=== PATIENT | female | born 1955 | race Caucasian/White ===

== ENCOUNTER 2016-08-11 05:23 | Day surgery (SDC) | payer MEDICARE, OTHER ==
[2016-08-09 12:18] LABS: ALANINE AMINOTRANSFERASE 30 U/L (9-52); ALBUMIN 3.6 g/dL (3.5-5.0); ALKALINE PHOSPHATASE 93 U/L (38-126); ANION GAP 11 (5-19); ASPARTATE AMINO TRANSFERASE 32 U/L (14-36); BILIRUBIN,TOTAL 0.8 mg/dL (0.2-1.3); BLOOD UREA NITROGEN 12 mg/dL (7-20); CALCIUM 8.9 mg/dL (8.4-10.2); CARBON DIOXIDE 25 mmol/L (22-30); CHLORIDE 106 mmol/L (98-107); CREATININE RESULT 1.11 mg/dL (0.52-1.25); GLUCOSE 111 mg/dL (75-110); POTASSIUM 3.8 mmol/L (3.6-5.0); SODIUM 141.5 mmol/L (137-145); TOTAL PROTEIN 6.3 g/dL (6.3-8.2)
--- NOTE | 2016-08-09 18:20 | EKG REPORT ---
SEVERITY:- BORDERLINE ECG - SINUS RHYTHM NONSPECIFIC ANTERIOR T INVERSIONS. : Confirmed by: Cl Del Angel MD 09-Aug-2016 18:19:44
[~2016-08-11 05:23] MED LIST: LACTATED RINGERS 1000 ML IV PRN; LIDOCAINE 0.5% INJ-PF (5 MG/ML) 50 ML SDV SUBCUT PRN
[2016-08-11] MEDS ORDERED: MIDAZOLAM 2 MG/2 ML INJ ONE (06:48)
[2016-08-11] MEDS ORDERED: PROPOFOL INJ 200 MG/20 ML VIAL IV ONE ×2 (06:48→07:10)
[2016-08-11] MEDS ORDERED: ONDANSETRON HCL INJ/PF 4 MG/2 ML SDV ONE (06:48)
[2016-08-11] MEDS ORDERED: FENTANYL CITRATE INJ/PF 100 MCG/2 ML AMPUL ONE (06:48)
[2016-08-11] MEDS ORDERED: ACETAMINOPHEN 0 ML IV ONE (06:48)
[2016-08-11] MEDS ORDERED: LIDOCAINE 1%/EPINEPHRINE INJ 20 ML VIAL ONE (06:51)
[2016-08-11 07:12] LABS: HEMATOCRIT 35.4 % (36.0-47.0); HEMOGLOBIN 12.2 g/dL (12.0-15.5); HGB HCT DIFFERENCE 1.2; MEAN CORPUSCULAR HEMOGLOBIN 32.8 pg (27.0-33.4); MEAN CORPUSCULAR HGB CONC 34.4 g/dL (32.0-36.0); MEAN CORPUSCULAR VOLUME 95 fl (80-97); RED BLOOD COUNT 3.72 10^6/uL (3.72-5.28); RED CELL DISTRIBUTION WIDTH 16.2 % (11.5-14.0)
[2016-08-11 07:50] LABS: WHITE BLOOD COUNT 1.6 10^3/uL (4.0-10.5)
[2016-08-11] MEDS ORDERED: DIAZEPAM 5 MG TABLET ONE (07:51)
[2016-08-11] MEDS ORDERED: DIPHENHYDRAMINE HCL 50 MG/ML VIAL IV PRN (08:26)
[2016-08-11] MEDS ORDERED: PROMETHAZINE HCL INJ 25 MG/1 ML VIAL IV PRN ×2 (08:26)
[2016-08-11] MEDS ORDERED: MORPHINE SULFATE 10 MG/ML INJ IV PRN (08:26)
[2016-08-11] MEDS ORDERED: MEPERIDINE HCL/PF INJ 25 MG/1 ML DISP.SYRIN IV PRN (08:26)
[2016-08-11] MEDS ORDERED: FENTANYL CITRATE INJ/PF 100 MCG/2 ML AMPUL IV PRN ×3 (08:26)
[2016-08-11] MEDS ORDERED: HYDROMORPHONE HCL INJ/PF 2 MG/ML AMPULE ONE ×2 (08:50→10:11)
[2016-08-11] MEDS ORDERED: RINGERS SOLUTION,LACTATED 1,000 ML IV PRN (09:47)
[2016-08-11] MEDS ORDERED: OXYCODONE-ACETAMINOPHEN 5-325 MG TABLET PO PRN ×2 (09:48)
[2016-08-11] MEDS ORDERED: IBUPROFEN 800 MG TABLET PO PRN (09:48)
[2016-08-11 10:43] LABS: PATH REVIEW PATHOLOGIST REVIEWED
[2016-08-11] MEDS ORDERED: CEFAZOLIN INJ 1 GM VIAL ONE (10:58)
[2016-08-11] MEDS ORDERED: CEFAZOLIN SODIUM 1 GM in DEXTROSE 5%-WATER 50 ML IV PRN (10:59)
[2016-08-11 11:35] VITALS: BP 136/85
--- NOTE | 2016-08-18 09:24 | Operative Report ---
Operative Report DATE OF SURGERY: 08/11/16 OPERATION: EUA, Paracervical Block, Hysteroscopy, D&C, L/S with cautery of uterus at perforation. ANESTHESIA: GA TISSUE REMOVED OR ALTERED: endometrial currettings COMPLICATIONS: uterine perforation PROCEDURE: Preoperative Diagnosis: [PMB with possible polyp noted on Endometrial biopsy] Postoperative Diagnosis: DIAMANTE Procedure: EUA, Paracervical Block,Hysteroscopy, Dilation and Curettage, Operative L/S with cautery of perforation site at fundus Anesthesia: [Cristo Zhang MD, Db Whatley CRNA] Anesthesia: GETT EBL: less than 20ml IVF: [900ml] UOP: 100ml Specimens: [endometrial currettings] Complications: None Findings:[small anteverted uterus with moderate descent, on hysteroscopy noted possible ashermans extending down the length of the uterine cavity in the central portion of the cavity or a uterine septum which extended to the endocervical os, uterine perforation noted at the lateral fundus near each fallopian tube. no other injuries noted on survey of the patient's abdomen. Cobblestone appearance of the liver noted.. ] Indications: [61yo with postmenopausal bleeding and endometrial biopsy in the office revealed possible endometrial polyp. The risks, benefits, alternatives reviewed with the patient and she desires to proceed with planned procedure.] Procedure: The patient was taken to the Operating Room where general anesthesia was obtained without difficulty. She was prepped and draped in the normal sterile fashion in the dorsal lithotomy position. Exam under anesthesia was performed and noted above. A speculum was placed in the vagina. The anterior cervix was grasped with a single-tooth tenaculum and the uterus sounded to 8 cm after paracervical block was performed with 8 mL of 1% lidocaine with epinephrine. Sequential dilators were then used to dilate the cervix to accommodate the hysteroscope but the dilators extended past the initial sound of the uterus. The hysteroscope was then gently advanced into the uterine cavity in the usual fashion and septum or asherman's noted as described above and possible uterine perforation noted. The hysteroscopy was removed and gently currettage low in the uterus and endocervis was performed. The currett was removed. All instruments were removed from the patient's cervix and vagina. Silver nitrate was applied to the tenaculum site for hemostasis. Attention was then turned to the patient's abdomen (after the patient was repreped and draped for an abdominal procedure) and an infraumbilical skin incision was made. The Optiview trocar and laparoscope were then gently advanced under direct visualization. The abdomon was then insufflated with 4L of carbon dioxide gas. Survey of the patients abdomen and pelvis revealed two uterine perforations at the fundus near the fallopian tubes (one on each side). There were no other injuries on survey of the abdomen. A second 5mm trocar was placed in the left lower quadrant approximately 4cm superior and 2 cm medial to the anterior superior iliac spine. The monopolar endoshears were then advanced and the uterine perforation sites were cauterized. The abdomen was then cleared of the free fluid and hemoperitoneum. All sites were noted to be hemostatic. All instruments were removed from the patients abdomen. All trocars were remov after the insufflation was evacuated. All trocar sites were closed with 30 monocryl and overlying dermabond. Sponge lap needle and instrument counts are correct x 2. 2 grams of Ancef were ordered postoperatively for antibiotic coverage due to patient's low white blood cell count and the uterine perforation noted. The patient tolerated the procedure well and was taken to the recovery area awake and in stable condition.
== END 2016-08-11 11:30 | disposition home or self-care (01) ==
LOC: OROUT 05:23
PROVIDERS: ATTEND Student in an Organized Health Care Education/Training Program
PROC: 0UQ Female Reproductive System, Repair (ICD-10-PCS; 2016-08-11)
PROC: 0UDB8ZX Extraction of Endometrium, Via Natural or Artificial Opening Endoscopic, Diagnostic (ICD-10-PCS; principal; 2016-08-11 07:30)
DX: N95.0 Postmenopausal bleeding (principal); N84.0 Polyp of corpus uteri; S37.69XA Other injury of uterus, initial encounter; N99.71 Accidental puncture and laceration of a genitourinary system organ or structure during a genitourinary system procedure; Y92.530 Ambulatory surgery center as the place of occurrence of the external cause; F17.210 Nicotine dependence, cigarettes, uncomplicated; E07.9 Disorder of thyroid, unspecified; Z79.899 Other long term (current) drug therapy
CPT/HCPCS: 93005; 36415 ×2; 85027; 80053; 88305 ×2; 93010; 58558; 58999; J2250; J0690; A9270; J3010; J3490; J1170; J2405; J2704; 840; J0131

== ENCOUNTER 2016-08-12 10:21 | Emergency (ER) | payer MEDICARE, OTHER ==
--- NOTE | 2016-08-12 10:34 | ER Document Report ---
ED Medical Screen (RME) - General Stated Complaint: SIDE PAIN Time seen by provider: 10:31 Mode of Arrival: Wheelchair Information source: Patient Notes: 61-year-old female that had a D&C yesterday by Dr. Gold is complaining of generalized body pain abdominal, back, arms. During the procedure her uterus was punctured with the probe. They then did a laparoscopic and cauterized the bleeder. They did not find any bowel or bladder punctured that she is aware of. No fever. No vaginal bleeding. No hematuria. TRAVEL OUTSIDE OF THE [place] IN LAST 30 DAYS: No - Related Data Allergies/Adverse Reactions: No Known Allergies Allergy (Verified 08/12/16 10:31) Past Medical History - Past Medical History Cardiac Medical History: Denies: Hx Coronary Artery Disease, Hx Heart Attack, Hx Hypertension Pulmonary Medical History: Denies: Hx Asthma, Hx Bronchitis, Hx COPD, Hx Pneumonia Neurological Medical History: Denies: Hx Cerebrovascular Accident, Hx Seizures GI Medical History: Reports: Hx Hepatitis - Hep C Musculoskeltal Medical History: Reports Hx Arthritis Psychiatric Medical History: Reports: Hx Bipolar Disorder, Hx Depression Infectious Medical History: Reports: Hx Hepatitis - Hep C Past Surgical History: Reports: Hx Section - Immunizations Hx Diphtheria, Pertussis, Tetanus Vaccination: No
[2016-08-12 11:20] LABS: ABSOLUTE LYMPHOCYTES (AUTO) 0.5 10^3/uL (0.5-4.7); ABSOLUTE MONOCYTES (AUTO) 0.1 10^3/uL (0.1-1.4); BASOPHILS % (AUTO) 0.3 % (0-2); HEMATOCRIT 38.9 % (36.0-47.0); HEMOGLOBIN 12.9 g/dL (12.0-15.5); HGB HCT DIFFERENCE -0.2; MEAN CORPUSCULAR HEMOGLOBIN 32.1 pg (27.0-33.4); MEAN CORPUSCULAR HGB CONC 33.3 g/dL (32.0-36.0); MEAN CORPUSCULAR VOLUME 96 fl (80-97); MONOCYTES % (AUTO) 5.4 % (3-13); RED BLOOD COUNT 4.04 10^6/uL (3.72-5.28); RED CELL DISTRIBUTION WIDTH 16.1 % (11.5-14.0); SEGMENTED NEUTROPHILS % (AUTO) 75.3 % (42-78); WHITE BLOOD COUNT 2.6 10^3/uL (4.0-10.5)
[2016-08-12 11:29] LABS: APPEARANCE,URINE SLIGHTLY-CLOUDY; BILIRUBIN,URINE NEGATIVE (NEGATIVE); GLUCOSE, URINE NEGATIVE (NEGATIVE); KETONES,URINE NEGATIVE (NEGATIVE); LEUKOCYTE ESTERASE,URINE LARGE (NEGATIVE); NITRITE,URINE NEGATIVE (NEGATIVE); PROTEIN,URINE NEGATIVE (NEGATIVE); URINE SPECIFIC GRAVITY 1.012; UROBILINOGEN,URINE NEGATIVE mg/dL (<2.0)
[2016-08-12 11:39] LABS: ALANINE AMINOTRANSFERASE 21 U/L (9-52); ALBUMIN 3.9 g/dL (3.5-5.0); ALKALINE PHOSPHATASE 98 U/L (38-126); ANION GAP 11 (5-19); ASPARTATE AMINO TRANSFERASE 55 U/L (14-36); BILIRUBIN,TOTAL 1.4 mg/dL (0.2-1.3); BLOOD UREA NITROGEN 17 mg/dL (7-20); CALCIUM 9.4 mg/dL (8.4-10.2); CARBON DIOXIDE 24 mmol/L (22-30); CHLORIDE 106 mmol/L (98-107); CREATININE RESULT 1.04 mg/dL (0.52-1.25); GLUCOSE 146 mg/dL (75-110); POTASSIUM 3.9 mmol/L (3.6-5.0); SODIUM 141.3 mmol/L (137-145); TOTAL PROTEIN 7.1 g/dL (6.3-8.2)
[2016-08-12] MEDS ORDERED: HYDROMORPHONE HCL INJ/PF 2 MG/ML AMPULE IV ONE ×2 (11:49→13:31)
[2016-08-12] MEDS ORDERED: NORMAL SALINE 1000 ML 1,000 ML IV ONE (11:49)
--- NOTE | 2016-08-12 11:49 | ER Document Report ---
ED General Pain - General Chief Complaint: Pain All Over Stated Complaint: SIDE PAIN Time seen by provider: 11:30 Mode of Arrival: Wheelchair Notes: Patient is a 61-year-old female presents emergency department with complaints of generalized pain. Patient had a D&C yesterday which was complicated by uterine perforation that was repaired. She was discharged home and told that she would likely have increased pain over the next 1-2 days. She states that the vaginal bleeding has almost subsided. She however complains of pain that is generalized. She is on chronic pain medication and has been weaning herself off of this over this week. She was not given any additional pain medication as she is on pain management. She states that she was in pain yesterday when she left the hospital but had received a dose of Dilaudid. She did not take any pain medication until 2 PM yesterday and states that her pain medication is not helping. She's had decreased appetite as well. She denies any nausea or vomiting. She denies fever. She does have some bruising to her abdominal wall around one of her laparoscopy sites. Patient's family states that after the D& C was performed, the surgeon to perform a laparoscopy to repair the uterine perforation and to check for any other injuries. Patient states that she does have some abdominal pain but in general hurts all over. TRAVEL OUTSIDE OF THE [place] IN LAST 30 DAYS: No - Related Data Allergies/Adverse Reactions: No Known Allergies Allergy (Verified 08/12/16 10:31) Past Medical History - General Information source: Patient - Social History Smoking Status: Never Smoker Chew tobacco use (# tins/day): No Frequency of alcohol use: None Drug Abuse: None Family History: Reviewed & Not Pertinent Patient has suicidal ideation: No Patient has homicidal ideation: No - Past Medical History Cardiac Medical History: Denies: Hx Coronary Artery Disease, Hx Heart Attack, Hx Hypertension Pulmonary Medical History: Denies: Hx Asthma, Hx Bronchitis, Hx COPD, Hx Pneumonia Neurological Medical History: Denies: Hx Cerebrovascular Accident, Hx Seizures Renal/ Medical History: Denies: Hx Peritoneal Dialysis GI Medical History: Reports: Hx Hepatitis - Hep C Musculoskeltal Medical History: Reports Hx Arthritis Psychiatric Medical History: Reports: Hx Bipolar Disorder, Hx Depression Infectious Medical History: Reports: Hx Hepatitis - Hep C Past Surgical History: Reports: Hx Section - Immunizations Hx Diphtheria, Pertussis, Tetanus Vaccination: No Review of Systems - Review of Systems Constitutional: Weakness - generalized. denies: Fever, Malaise EENT: denies: Nose congestion Cardiovascular: denies: Chest pain Respiratory: denies: Short of breath Gastrointestinal: Abdominal pain. denies: Diarrhea, Vomiting Musculoskeletal: Muscle pain Neurological/Psychological: denies: Headaches Physical Exam - Vital signs Vitals: Temp Pulse Resp BP Pulse Ox 97.3 F 71 13 125/64 98 08/12/16 14:12 08/12/16 14:12 08/12/16 14:12 08/12/16 14:12 08/12/16 14:12 - Notes Notes: PHYSICAL EXAMINATION: GENERAL: Well-appearing, well-nourished and in no acute distress. HEAD: Atraumatic, normocephalic. EYES: sclera anicteric, conjunctiva are normal. ENT: Moist mucous membranes. NECK: supple, no meningismus BACK: No CVA tenderness to palpation. No midline tenderness to palpation. No step-offs or deformities. LUNGS: Breath sounds clear to auscultation bilaterally and equal. No wheezes rales or rhonchi. HEART: Regular rate and rhythm without murmurs ABDOMEN: Soft, generalized mild tenderness to palpation, incisions in left lower quadrant and umbilicus are clean, dry, and intact, ecchymosis noted around left lower quadrant incision, normoactive bowel sounds. Mild distention , voluntary guarding noted diffusely, no rebound EXTREMITIES: Normal range of motion, no pitting or edema. No cyanosis. No calf tenderness to palpation. 2+ pulses. NEUROLOGICAL: Cranial nerves grossly intact. Normal speech, moves all extremities equally, generalized weakness noted in all extremities PSYCH: Normal mood, normal affect. SKIN: Warm, Dry, no rashes or lesions noted. Course - Re-evaluation Re-evalutation: 08/12/16 Patient presents for generalized pain after D&C yesterday. Labs are about at baseline. Patient was given Dilaudid and IV fluids. On reevaluation, patient is sitting up in a wheelchair. She states that she continues to have significant pain. She does however appear more alert and interactive. Family member at bedside states that he is able to get her up and around the house. Patient has mild abdominal pain which is expected postprocedure. Hemoglobin is stable and have low suspicion for postoperative hemorrhage. Do not suspect postoperative infection at this time. Patient was counseled to increase her home pain medication to 1-2 tabs every 4-6 hours as needed and to call her bait painter on Sunday. Family member did note that patient recently started weaning herself off of her medications. She stopped one of her pain medications and decreased her oxycodone 2 days prior to surgery. Patient is nontoxic and stable for discharge. She was given return precautions. Patient and family verbalized understanding of plan and are in agreement with discharge. - Vital Signs Vital signs: Temp Pulse Resp BP Pulse Ox 97.3 F 71 13 125/64 98 08/12/16 14:12 08/12/16 14:12 08/12/16 14:12 08/12/16 14:12 08/12/16 14:12 - Laboratory Result Diagrams: 08/12/16 11:00 08/12/16 11:00 Laboratory results interpreted by me: 08/12/16 08/12/16 08/12/16 10:50 11:00 11:00 WBC 2.6 L RDW 16.1 H Plt Count 55 L Est GFR (Non-Af Amer) 54 L Glucose 146 H Total Bilirubin 1.4 H AST 55 H Urine Blood MODERATE H Ur Leukocyte Esterase LARGE H Discharge - Discharge Clinical Impression: Post-operative pain Condition: Stable Disposition: HOME, SELF-CARE Additional Instructions: ABDOMINAL PAIN: There are many causes of abdominal pain. Pain can mean a serious problem requiring surgery (such as appendicitis). It can also be an innocent problem that goes away on its own (such as a viral infection). Often, time must pass to determine the cause of pain. The physician does not feel that hospitalization is necessary, at present. Things may change within the next 24 hours. Call the doctor or come back for re- examination if any problems occur, such as: (1) Pain that becomes more severe, steady, or becomes concentrated in one specific area. Also, pain that is more severe with movement or coughing. (2) Vomiting that persists or becomes more frequent. (3) Blood in the vomitus, urine, or bowel movements. Blood in the stool may have a tarry or black appearance. (4) Shaking chills or fever greater than 100 degrees F. (5) The abdomen becomes more distended or swollen. (6) Bowel movements cease. (7) Failure to improve as expected. PAIN MEDICATION INJECTION: You have received an injection of a pain medication. You should experience significant pain relief within 45 minutes. This drug is a narcotic - - it will impair your judgement, slow your reaction time and make you sleepy ( as well as relieve your pain). Narcotics also can cause nausea. You should not drive, work with machinery, or perform any task requiring mental alertness until all effects of the medication are gone -- six to eight hours. Do not take any alcohol, or sedatives, and do not take any other medication without checking with your physician. ORAL NARCOTIC MEDICATION: You have been given a prescription for pain control. This medication is a narcotic. It's best taken with food, as nausea can result if taken on an empty stomach. Don't operate machinery or drive within six hours of taking this medication. Do not combine this medicine with alcohol, or with any medication which can cause sedation (such as cold tablets or sleeping pills) unless you get permission from the physician. Narcotics tend to cause constipation. If possible, drink plenty of fluids and eat a diet high in fiber and fruits. Please be aware that prescription narcotics also have the potential for abuse. People become addicted to these medications because of the general sense of wellbeing that they induce. This feeling along with a significant reduction in tension, anxiety, and aggression provides a stimulating seductive quality to these drugs. Once your pain is under control, we encourage you to discard your unused narcotics. FOLLOW-UP CARE: If you have been referred to a physician for follow-up care, call the physician s office for an appointment as you were instructed or within the next two days. If you experience worsening or a significant change in your symptoms, notify the physician immediately or return to the Emergency Department at any time for re-evaluation. As discussed, increase your pain medication to 1-2 tabs every 4-6 hours as needed for pain control. Call your pain management physician Sunday morning to discuss pain control and schedule close follow up. Follow up with your surgeon as scheduled. Referrals: NONI ANGELP [Primary Care Provider] - Follow up in 3-5 days
[2016-08-12] MEDS ORDERED: OXYCODONE HCL IR 5 MG TABLET PO ONE (13:32)
[2016-08-12 14:14] VITALS: BP 125/64
== END 2016-08-12 14:34 | disposition home or self-care (01) ==
LOC: ER 10:21
DX: G89.18 Other acute postprocedural pain (principal); M79.1 Myalgia; R53.1 Weakness; Z86.19 Personal history of other infectious and parasitic diseases
CPT/HCPCS: 96376; 99283; 96361; 96374; 36415; 87086; 85025; 80053; 81001; J1170; J7030; A9270

== ENCOUNTER → 2016-10-30 | Outpatient (CLI) | payer MEDICARE, OTHER ==
[2016-10-30 12:40] LABS: MEAN CORPUSCULAR HEMOGLOBIN 32.1 pg (27.0-33.4); MEAN CORPUSCULAR HGB CONC 34.4 g/dL (32.0-36.0); MEAN CORPUSCULAR VOLUME 93 fl (80-97); RED BLOOD COUNT 3.75 10^6/uL (3.72-5.28); RED CELL DISTRIBUTION WIDTH 13.1 % (11.5-14.0)
[2016-10-30 12:58] LABS: ALANINE AMINOTRANSFERASE 24 U/L (9-52); ALBUMIN 3.7 g/dL (3.5-5.0); ALKALINE PHOSPHATASE 72 U/L (38-126); ANION GAP 12 (5-19); ASPARTATE AMINO TRANSFERASE 23 U/L (14-36); BILIRUBIN,DIRECT 0.3 mg/dL (0.0-0.4); BILIRUBIN,TOTAL 0.9 mg/dL (0.2-1.3); BLOOD UREA NITROGEN 19 mg/dL (7-20); CALCIUM 9.2 mg/dL (8.4-10.2); CARBON DIOXIDE 22 mmol/L (22-30); CHLORIDE 111 mmol/L (98-107); CHOLESTEROL 129.24 mg/dL (0-200); CREATININE RESULT 0.77 mg/dL (0.52-1.25); Direct HDL 40 mg/dL (>40); GLUCOSE 88 mg/dL (75-110); POTASSIUM 3.8 mmol/L (3.6-5.0); SODIUM 144.6 mmol/L (137-145); TRIGLYCERIDES 84 mg/dL (<150)
[2016-10-30 13:09] LABS: DIRECT LDL 57 mg/dL (<100)
[2016-10-30 13:10] LABS: BASOPHILS % (MANUAL) 0 % (0-2); EOSINOPHILS % (MANUAL) 2 % (0-6); LYMPHOCYTES % (MANUAL) 42 % (13-45); TOTAL CELLS COUNTED 50
[2016-10-30 13:18] LABS: RBC MORPHOLOGY COMMENT NORMO-CYTIC/CHROMIC
[2016-10-30 14:41] LABS: WHITE BLOOD COUNT 1.4 10^3/uL (4.0-10.5)
== END ==
LOC: OD 11:12
PROVIDERS: ATTEND Psychiatry & Neurology Psychiatry
DX: E66.9 Obesity, unspecified (principal); F31.30 Bipolar disorder, current episode depressed, mild or moderate severity, unspecified
CPT/HCPCS: 36415; 80053; 80061; 84443; 85025

== ENCOUNTER → 2017-01-31 | Outpatient (CLI) | payer MEDICARE, OTHER ==
--- NOTE | 2017-01-31 09:54 | WOMENS IMAGING REPORT ---
EXAM DESCRIPTION: BILAT SCREENING MAMMO W/CAD COMPLETED DATE/TIME: 01/31/2017 8:14 am REASON FOR STUDY: Z12.31, ROUTINE SCREENING MAMMO Z12.31 ENCNTR SCREEN MAMMOGRAM FOR MALIGNANT NEOP LASM OF SHABBIR COMPARISON: Multiple since 2008 TECHNIQUE: Standard craniocaudal and mediolateral oblique views of each breast recorded using nodilaa l acquisition. LIMITATIONS: None. FINDINGS: Findings present which are benign by mammographic criteria. No suspicious masses, calcifi cations or architectural distortion. Pertinent benign findings: Benign bilateral breast parenchymal calcification Read with the assistance of CAD. .[facility] - R2 Cenova Version 1.3 .[facility] Imaging - R2 Cenova Version 1.3 .[facility] Imaging - R2 Cenova Version 2.4 .[facility] [place] R2 Cenova Version 2.4 .[facility] - R2 Edi Analyst Version 9.2 Benign mammographic findings may include one or more of the following: Smooth masses, popcorn/rim/co arse calcifications, asymmetries, post-procedure changes, and lesions with long-standing stability. IMPRESSION: BENIGN MAMMOGRAPHIC FINDINGS. BIRADS 2 BREAST DENSITY: a. The breasts are almost entirely fatty. BIRAD: 2 BENIGN FINDING(S) RECOMMENDATION: ROUTINE SCREENING COMMENT: The patient has been notified of the results by letter per SA requirements. Additional no tification policies are in place for contacting patient with suspicious or incomplete findings. Quality ID #225: The [employer] recommends an annual screening mammogram for women aged 40 years or over. This facility utilizes a reminder system to ensure that all patients receive reminder letters, and/or direct phone calls for appointments. This includes reminders for routine scr eening mammograms, diagnostic mammograms, or other Breast Imaging Interventions when appropriate. Th is patient will be placed in the appropriate reminder system. The [employer] (ACR) has developed recommendations for screening MRI of the breast s in certain patient populations, to be used in conjunction with mammography. Breast MRI surveillanc e may be appropriate for women with more than 20% lifetime risk of developing breast cancer as deter mined by genetic testing, significant family history of the disease, or history of mantle radiation f or Hodgkins Disease. ACR Practice Guidelines 2008. TECHNICAL DOCUMENTATION: FINDING NUMBER: (1) ASSESSMENT: (1) JOB ID: [id number] [employer]- All Rights Reserved
== END ==
LOC: WI 09:43
PROVIDERS: ATTEND Physician Assistant
DX: Z12.31 Encounter for screening mammogram for malignant neoplasm of breast (principal)
CPT/HCPCS: 77067; G0202

== ENCOUNTER → 2018-02-19 | Outpatient (CLI) | payer MEDICARE, OTHER ==
--- NOTE | 2018-02-19 08:39 | WOMENS IMAGING REPORT ---
EXAM DESCRIPTION: 3D SCREENING MAMMO BILAT COMPLETED DATE/TIME: 02/19/2018 8:25 am REASON FOR STUDY: Z12.31 Z12.31 ENCNTR SCREEN MAMMOGRAM FOR MALIGNANT NEOPLASM OF SHABBIR COMPARISON: 01/31/2017 and 09/02/2010. TECHNIQUE: Standard craniocaudal and mediolateral oblique views of each breast recorded using digita l acquisition and breast tomosynthesis. LIMITATIONS: None. FINDINGS: No masses, calcifications or architectural distortion. No areas of suspicion. Read with the assistance of CAD. .[facility] - R2 Cenova Version 1.3 .[facility] Imaging - R2 Cenova Version 1.3 .[facility] Imaging - R2 Cenova Version 2.4 .[facility] [place] R2 Cenova Version 2.4 .[facility] - R2 Rn Bariatric Version 9.2 IMPRESSION: NORMAL MAMMOGRAM. BIRADS 1. BREAST DENSITY: a. The breasts are almost entirely fatty. BIRAD: 1 NEGATIVE RECOMMENDATION: ROUTINE SCREENING COMMENT: The patient has been notified of the results by letter per SA requirements. Additional no tification policies are in place for contacting patient with suspicious or incomplete findings. Quality ID #225: The [employer] recommends an annual screening mammogram for women aged 40 years or over. This facility utilizes a reminder system to ensure that all patients receive reminder letters, and/or direct phone calls for appointments. This includes reminders for routine scr eening mammograms, diagnostic mammograms, or other Breast Imaging Interventions when appropriate. Th is patient will be placed in the appropriate reminder system. The [employer] (ACR) has developed recommendations for screening MRI of the breast s in certain patient populations, to be used in conjunction with mammography. Breast MRI surveillanc e may be appropriate for women with more than 20% lifetime risk of developing breast cancer as deter mined by genetic testing, significant family history of the disease, or history of mantle radiation f or Hodgkins Disease. ACR Practice Guidelines 2008. DBT Technology DBT is a type of tomographic mammography. With conventional mammography, overlapping breast tissue ma y make lesions difficult to detect, even with good compression. DBT uses an x-ray tube that rotates a round the breast, taking images at different angles. These images are then combined to create thin sl ices of the breast that the radiologist can view as a 3D reconstruction. The [employer] unit can perform full-field digital mammograms (2D imaging); or DBT (3D imaging); or both, in a combination mode that quickly performs both the mammogram and the tomosynthesis scan while the breast is still compressed. PQRS 6045F: Fluoroscopic imaging is not utilized for breast tomosynthesis. TECHNICAL DOCUMENTATION: FINDING NUMBER: (1) ASSESSMENT: (1) JOB ID: [id number] [employer]- All Rights Reserved Reading location - IP/workstation name: [email or web address]
== END ==
LOC: WI 07:56
PROVIDERS: ATTEND Family Medicine
DX: Z12.31 Encounter for screening mammogram for malignant neoplasm of breast (principal)
CPT/HCPCS: 77063; 77067

== ENCOUNTER → 2018-05-30 | Outpatient (CLI) | payer MEDICARE, OTHER ==
--- NOTE | 2018-05-31 09:02 | RADIOLOGY REPORT (SQ) ---
EXAM DESCRIPTION: CT ABD/PELVIS COMBO COMPLETED DATE/TIME: 05/30/2018 2:36 pm REASON FOR STUDY: CIRRHOSIS OF LIVER (K74.60), K74.60 UNSPECIFIED CIRRHOSIS OF LIVER B18.2 CHRONIC VIRAL HEPATITIS C G93.40 ENCEPHALOPATHY, UNSPECIFIED COMPARISON: Abdominal ultrasound 02/18/2015, 07/13/2014 CT abdomen pelvis 03/06/2014, 02/09/2013 TECHNIQUE: CT scan of the abdomen and pelvis performed with and without intravenous contrast, and wi thout oral contrast. Contrasted imaging performed helical scanning technique and dynamic intravenous contrast injection. Images reviewed with lung, soft tissue, and bone windows. Reconstructed coronal a nd sagittal MPR images reviewed. Delayed images for evaluation of the urinary system also acquired. A ll images stored on PACS. All CT scanners at this facility use dose modulation, iterative reconstruction, and/or weight based d osing when appropriate to reduce radiation dose to as low as reasonably achievable (ALARA). [facility]: Dose Right [facility]: CareDose [facility]: Dose Right [facility]: Teradose 4D [facility]: Recite Me CONTRAST TYPE AND DOSE: contrast/concentration: Isovue 350.00 mg/ml; Total Contrast Delivered: 53.0 ml; Total Saline Delivered: 80.0 ml RENAL FUNCTION: GFR > 60. RADIATION DOSE: CT Rad equipment meets quality standard of care and radiation dose reduction techniq ues were employed. CTDIvol: 9.9 - 25.4 mGy. DLP: 2101 mGy-cm. . LIMITATIONS: None. FINDINGS: NON-CONTRASTED IMAGING: No significant renal or bladder calcifications. No other significa nt organ calcifications. POST-CONTRASTED IMAGING: Patient has cirrhosis and portal hypertension with splenomegaly and varices. No ascites. LOWER CHEST: No significant findings. No nodules or infiltrates. LIVER: Small nodular liver. No discrete primary hepatic mass. No biliary ductal dilatation. Massiv herminia enlarged main, right and left portal veins with recannulized umbilical vein. SPLEEN: Massive splenomegaly, 25 cm craniocaudad length (was 17 cm on 03/06/2014). PANCREAS: No masses. No significant calcifications. No adjacent inflammation or peripancreatic fluid collections. Pancreatic duct not dilated. GALLBLADDER: Small gallstones are present without CT signs of acute cholecystitis ADRENAL GLANDS: No significant masses or asymmetry. RIGHT KIDNEY AND URETER: No solid masses. No significant calcifications. No hydronephrosis or hyd roureter. LEFT KIDNEY AND URETER: No solid masses. No significant calcifications. No hydronephrosis or hydr oureter. AORTA AND VESSELS: No aneurysm. No dissection. Renal arteries, SMA, celiac without stenosis. Massive ly distended splenic vein, superior mesenteric vein, and portal vein. There are varices along the di stal esophagus, and along the anterior abdominal wall periumbilical region RETROPERITONEUM: No retroperitoneal adenopathy, hemorrhage or masses. BOWEL AND PERITONEAL CAVITY: No free intraperitoneal air. No ascites. No bowel obstruction. Grossl y nonobstructive appearance of the bowel APPENDIX: Normal. PELVIS: No mass. No free fluid. Normal bladder. ABDOMINAL WALL: No masses. No hernias. BONES: No significant or acute findings. OTHER: No other significant finding. IMPRESSION: Cirrhosis with portal hypertension, splenomegaly and varices. No ascites. No liver mas ses identified. TECHNICAL DOCUMENTATION: JOB ID: [id number] Quality ID # [id number]: Final reports with documentation of one or more dose reduction techniques (e.g., Au tomated exposure control, adjustment of the mA and/or kV according to patient size, use of iterative reconstruction technique) 2010 [employer]- All Rights Reserved Reading location - IP/workstation name: [email or web address]
== END ==
LOC: RAD 13:51
PROVIDERS: ATTEND Internal Medicine Gastroenterology
DX: K74.60 Unspecified cirrhosis of liver (principal); B18.2 Chronic viral hepatitis C; G93.40 Encephalopathy, unspecified; K21.9 Gastro-esophageal reflux disease without esophagitis
CPT/HCPCS: 74178; 82565

== ENCOUNTER → 2019-05-09 | Outpatient (CLI) | payer MEDICARE, OTHER ==
--- NOTE | 2019-05-09 10:30 | RADIOLOGY REPORT (SQ) ---
EXAM DESCRIPTION: U/S ABDOMEN COMPLETE W/O DOP COMPLETED DATE/TIME: 05/09/2019 8:06 am REASON FOR STUDY: CIRRHOSIS OF LIVER (K74.60) K74.60 UNSPECIFIED CIRRHOSIS OF LIVER COMPARISON: 02/18/2015. TECHNIQUE: Dynamic and static grayscale images acquired of the abdomen and recorded on PACS. Additio nal selected color Doppler and spectral images recorded. Note: Exam does not meet criteria for a complete duplex/doppler study LIMITATIONS: Study limited due to acoustical interference from fat or from air in the bowel. FINDINGS: PANCREAS: Obscured. LIVER: Echotexture is coarse with increased echogenicity consistent with fatty infiltration. LIVER VASCULATURE: Distended portal vein, measuring 4.7 cm. Normal directional flow of the main port al vein and hepatic veins. GALLBLADDER: Gallstones. Normal wall thickness. No pericholecystic fluid. ULTRASOUND-DETECTED DUKE'S SIGN: Negative. INTRAHEPATIC DUCTS AND COMMON DUCT: CBD and intrahepatic ducts normal caliber. No filling defects. INFERIOR VENA CAVA: Normal flow. AORTA: No aneurysm. RIGHT KIDNEY: Normal size. Normal echogenicity. No solid or suspicious masses. No hydronephros is. No calcifications. LEFT KIDNEY: Normal size. Normal echogenicity. No solid or suspicious masses. No hydronephrosi s. No calcifications. SPLEEN:Enlarged, measuring 18.1 cm. No solid masses. PERITONEAL AND PLEURAL SPACES: No ascites or effusions. OTHER: No other significant finding. IMPRESSION: 1. FATTY INFILTRATION OF THE LIVER. DISTENDED PORTAL VEIN. HEPATOPETAL FLOW. 2. GALLSTONES. 3. SPLENOMEGALY. 4. NO OTHER SIGNIFICANT FINDING IN THE VISUALIZED ABDOMEN. TECHNICAL DOCUMENTATION: JOB ID: [id number]- All Rights Reserved Reading location - IP/workstation name: [email or web address]
== END ==
LOC: RAD 07:06
PROVIDERS: ATTEND Internal Medicine Gastroenterology
DX: K74.60 Unspecified cirrhosis of liver (principal); K80.80 Other cholelithiasis without obstruction; R16.1 Splenomegaly, not elsewhere classified
CPT/HCPCS: 76700